=== PATIENT | male | born 1965 | race Caucasian/White ===

== ENCOUNTER 2025-03-23 11:37 | Emergency (ER) | payer BC ==
[~2025-03-23] VITALS: Ht 177.8 cm; Wt 90.7 kg
[2025-03-23 11:47] VITALS: TEMP 98.7
[2025-03-23 13:42] VITALS: PULSE 71; RESP 18
[2025-03-23] MEDS: KETOROLAC TROMETHAMINE 60 MG/2 ML VIAL IM ONE (13:46)
[2025-03-23] MEDS ORDERED: HYDROCODON-ACE1 EA11 PO (15:07)
[2025-03-23 15:18] VITALS: BP 127/84; PULSE 74; RESP 18; TEMP 98.2; O2SAT 98
== END 2025-03-23 15:11 | disposition home or self-care (01) ==
LOC: ER 12:24
DX: S92.061A Displaced intraarticular fracture of right calcaneus, initial encounter for closed fracture (principal); W11.XXXA Fall on and from ladder, initial encounter; Y92.89 Other specified places as the place of occurrence of the external cause; I10 Essential (primary) hypertension
CPT/HCPCS: 29515; 73610; 73630; 73650; 73700; 99284; J1885